=== PATIENT | female | born 1980 | race Hispanic/Latino ===

== ENCOUNTER 2019-07-05 15:58 | Emergency (ER) | payer OTHER ==
[~2019-07-05] VITALS: Ht 160 cm; Wt 51.7 kg
[2019-07-05] MEDS ORDERED: SODIUM CHLORIDE 0.9% 100 ML ONE (18:42)
[2019-07-05] MEDS ORDERED: IOPAMIDOL 370 MG/ML 200 ML INFUS..BTL INJ ONE (18:42)
--- NOTE | 2019-07-05 19:57 | Diagnostic Imaging Report ---
History:Dizziness. Comparison studies:Images of MRI brain from outside facility from 05/05/2019. Technique: Axial images were obtained from the skull base to the vertex. Coronal and sagittal images reconstructed from the axial data. Multi-planar and 3-D reconstructed images were obtained. Dose modulation, iterative reconstruction, and/or weight based adjustment of the mA/kV was utilized to reduce the radiation dose to as low as reasonably achievable. Intravenous contrast: 100 cc of Isovue 370. Findings: Internal carotid arteries: Right: Patent. Left: Patent. Bilateral anterior and middle cerebral arteries are patent without abnormality. Vertebral arteries: Patent. Basilar artery: Patent. Posterior cerebral arteries: Patent. Anatomical variants: Anterior communicating artery :Present Posterior communicating arteries: Not visualized. Vertebral arteries: Codominant. IMPRESSION: No intracranial vascular abnormality. Signed by: Dr. Liliya Martines M.D. on 07/05/2019 7:55 PM
[2019-07-05] MEDS ORDERED: MECLIZINE HCL 12.5 MG TAB PO ONE (20:15)
[2019-07-05] MEDS ORDERED: DIAZEPAM INJ 5 MG/ML 2 ML IV ONE (20:15)
[2019-07-05 21:57] VITALS: BP 127/83
[2019-07-05] MEDS ORDERED: DIAZEPAM 5 MG TAB ONE (21:58)
[2019-07-05] MEDS ORDERED: DIAZEPAM 2 MG TAB PO ONE (22:00)
== END 2019-07-05 22:35 | disposition home or self-care (01) ==
LOC: ER 15:58
DX: R42 Dizziness and giddiness (principal)
CPT/HCPCS: 70496; 99284; J7050; J8597; Q9967